=== PATIENT | male | born 1995 | race Hispanic/Latino ===

== ENCOUNTER 2018-04-14 03:09 | Emergency (ER) | payer SELFPAY ==
[2018-04-14] MEDS ORDERED: Lidocaine 1% PF 5 ML VIAL ONE (03:17)
[2018-04-14] MEDS ORDERED: Lidocaine 1% (PF) 30 ML VIAL ONE (03:19)
[2018-04-14] MEDS ORDERED: Bacitracin Zinc 1 Packet ONE (03:53)
== END 2018-04-14 04:00 | disposition home or self-care (01) ==
LOC: ERS 03:09
DX: S01.81XA Laceration without foreign body of other part of head, initial encounter (principal); W25.XXXA Contact with sharp glass, initial encounter
CPT/HCPCS: 12002; J2001